=== PATIENT | female | born 1935 | race African-American/Black ===

== ENCOUNTER 2021-10-04 17:24 | Inpatient (IN) | payer OTHER ==
[~2021-10-04] VITALS: Ht 170.2 cm; Wt 82.1 kg
[2021-10-04] MEDS ORDERED: MIDAZOLAM HCL 100 MG in DEXT 5% WATER 80 ML IV ONE (17:45)
[2021-10-04] MEDS ORDERED: PROPOFOL 10MG/ML 100ML 100 ML IV ONE (17:45)
[2021-10-04] MEDS ORDERED: MIDAZOLAM 100MG/100ML PREMIX IV PRN (18:15)
[2021-10-04 18:26] LABS: BASOPHILS % 0.4 % (0.0-2.0); HEMATOCRIT. 45.8 % (36.0-48.0); HEMOGLOBIN. 14.4 g/dL (12.0-16.0); MEAN CORPUSCULAR VOLUME 92.3 fL (81.0-99.0); MEAN PLATELET VOLUME 8.7 fl (7.4-10.4); NEUTROPHILS % 73.6 % (40.0-76.0); PLATELET 284 x1000/uL (130-400); RED BLOOD CELL COUNT 4.96 mill/uL (4.2-5.4); RED CELL DISTRIBUTION WIDTH 14.5 % (11.6-14.6)
[2021-10-04 18:31] LABS: CHLORIDE 113 mEq/L (98-107)
[2021-10-04 18:37] LABS: CLARITY URINE CLOUDY (CLEAR); COLOR URINE YELLOW (YELLOW); KETONES URINE NEGATIVE (NEGATIVE); LEUKOCYTE ESTERASE URINE TRACE (NEGATIVE); NITRITE URINE POSITIVE (NEGATIVE); OCCULT BLOOD URINE 2+ (NEGATIVE); PROTEIN URINE 3+ (NEGATIVE); SPECIFIC GRAVITY URINE 1.022 (1.005-1.030)
[2021-10-04 19:01] LABS: BG CARBOXYHEMOGLOBIN 0.8 % (0.5-1.5); BG DEOXYHEMOGLOBIN 1.9 % (0.0-5.0); BG FRACTION INSPIRED OXYGEN 100; BG HCO3 ACT 22.2 mmol/L (22.0-26.0); BG METHEMOGLOBIN 0.1 % (0.0-1.5); BG OXYGEN SATURATION 98.1 % (92.0-98.5); BG OXYHEMOGLOBIN 97.2 % (94.0-97.0); BG PCO2 60.1 mmHg (35.0-45.0); BG PH 7.185 (7.350-7.450); BG PO2 139.2 mmHg (75.0-100.0); BG SAMPLE SITE RIGHT RADIAL; BG TOTAL HEMOGLOBIN 14.8 g/dL (12.0-18.0); BG VENT MODE VENT - AC
[2021-10-04] MEDS ORDERED: VANCOMYCIN 1G PREMIX 200 ML IV ONE (19:30)
[2021-10-04] MEDS ORDERED: CEFTRIAXONE 1 G PREMIX 50 ML IV ONE (19:30)
[2021-10-04] MEDS ORDERED: CEFTRIAXONE 1 G PREMIX 50 ML IV NR (21:15)
[2021-10-04 22:00] VITALS: BP 98/61
[2021-10-04 22:30] VITALS: BP 96/54
[2021-10-04] MEDS ORDERED: ACETAMINOPHEN 650MG SUPP PR PRN ×2 (22:45)
[2021-10-04] MEDS ORDERED: BLOOD SUGAR DIAGNOSTIC STRIP TEST SCH (22:45)
[2021-10-04] MEDS ORDERED: CEFTRIAXONE 1 G PREMIX 50 ML IV SCH ×2 (22:45)
[2021-10-04] MEDS ORDERED: IPRATROPIUM/ALBUTEROL 0.5-3(2.5)MG/3ML NEB NEB PRN (22:45)
[2021-10-04] MEDS ORDERED: DIPHENHYDRAMINE 50MG/ML VIAL IV PRN (22:45)
[2021-10-04] MEDS ORDERED: PHENYLEPHRINE 100 MG in DEXT 5% WATER 240 ML IV PRN (22:45)
[2021-10-04] MEDS ORDERED: DEXTROSE 50% WATER 50ML SYRINGE IV PRN ×2 (22:45→23:00)
[2021-10-04] MEDS ORDERED: ONDANSETRON HCL 4MG/2ML INJ IV PRN (22:45)
[2021-10-04 23:00] VITALS: BP 57/54
[2021-10-04] MEDS ORDERED: INSULIN LISPRO 100 UNITS/ML SUBCUT SCH (23:00)
[2021-10-04 23:30] VITALS: BP 81/41
[2021-10-04] MEDS ORDERED: KCL 20MEQ/100ML PREMIX 200 ML IV SCH (23:30)
[2021-10-05] VITALS (67 sets, daily range): BP systolic 60–152; BP diastolic 43–85
[2021-10-05] MEDS: SODIUM CHLORIDE 0.9% 1,000 ML IV SCH ×2 (00:20→18:55)
[2021-10-05] MEDS: AZITHROMYCIN 500 MG in DEXT 5% WATER 250 ML IV SCH ×2 (00:20→23:52)
[2021-10-05] MEDS: BLOOD SUGAR DIAGNOSTIC STRIP TEST SCH ×4 (00:20→18:56)
[2021-10-05] MEDS: PROPOFOL 10MG/ML 100ML 100 ML IV PRN ×4 (00:24→20:30)
[2021-10-05] MEDS: NOREPINEPHRINE 8 MG in DEXT 5% WATER 242 ML IV PRN ×2 (00:25→20:28)
[2021-10-05] MEDS ORDERED: VANCOMYCIN 1.5GM PMX (XELLIA) 300 ML IV NR (00:30)
[2021-10-05 00:34] LABS: BG BASE EXCESS -5.7 mmol/L (-2.0-2.0); BG CARBOXYHEMOGLOBIN 0.4 % (0.5-1.5); BG DEOXYHEMOGLOBIN 2.6 % (0.0-5.0); BG FRACTION INSPIRED OXYGEN 75; BG METHEMOGLOBIN 0.3 % (0.0-1.5); BG OXYGEN SATURATION 97.4 % (92.0-98.5); BG OXYHEMOGLOBIN 96.7 % (94.0-97.0); BG PCO2 30.2 mmHg (35.0-45.0); BG PH 7.392 (7.350-7.450); BG SAMPLE SITE ALINE; BG TOTAL HEMOGLOBIN 13.6 g/dL (12.0-18.0); BG VENT MODE VENT - AC
[2021-10-05] MEDS: KCL 20MEQ/100ML PREMIX 200 ML IV SCH ×2 (00:51→04:33)
[2021-10-05] MEDS ORDERED: VANCOMYCIN 1500MG in DEXTROSE 5% WATER 250ML IV NR (01:00)
[2021-10-05 06:17] LABS: BASOPHILS % 0.3 % (0.0-2.0); EOSINOPHILS % 0.1 % (0.0-5.0); HEMATOCRIT. 42.9 % (36.0-48.0); LYMPHOCYTES % 7.6 % (20.0-50.0); MEAN CORPUSCULAR HEMOGLOBIN 28.9 pg (28.0-32.0); MEAN CORPUSCULAR VOLUME 88.5 fL (81.0-99.0); MEAN PLATELET VOLUME 8.8 fl (7.4-10.4); MONOCYTES % 8.3 % (2.0-8.0); NEUTROPHILS % 83.7 % (40.0-76.0); PLATELET 228 x1000/uL (130-400); RED BLOOD CELL COUNT 4.85 mill/uL (4.2-5.4)
[2021-10-05] MEDS: INSULIN LISPRO 100 UNITS/ML SUBCUT SCH ×3 (06:46→18:00)
[2021-10-05] MEDS ORDERED: INSULIN LISPRO 100 UNITS/ML SUBCUT SCH (08:20)
[2021-10-05] MEDS ORDERED: ENOXAPARIN 40MG/0.4ML SYR SUBCUT SCH (09:00)
[2021-10-05 09:12] LABS: BG BASE EXCESS -6.1 mmol/L (-2.0-2.0); BG CARBOXYHEMOGLOBIN 0.3 % (0.5-1.5); BG DEOXYHEMOGLOBIN 2.9 % (0.0-5.0); BG FRACTION INSPIRED OXYGEN 75; BG HCO3 ACT 17.5 mmol/L (22.0-26.0); BG METHEMOGLOBIN 0.1 % (0.0-1.5); BG OXYGEN SATURATION 97.1 % (92.0-98.5); BG OXYHEMOGLOBIN 96.7 % (94.0-97.0); BG PCO2 29.5 mmHg (35.0-45.0); BG PH 7.391 (7.350-7.450); BG PO2 99.3 mmHg (75.0-100.0); BG SAMPLE SITE RIGHT RADIAL; BG TOTAL HEMOGLOBIN 13.8 g/dL (12.0-18.0); BG VENT MODE VENT - AC
[2021-10-05] MEDS: PANTOPRAZOLE SODIUM 40 MG/VIAL IV SCH (09:44)
[2021-10-05] MEDS: FUROSEMIDE 40MG/4ML VIAL IVP SCH (12:00)
[2021-10-05] MEDS ORDERED: VANCOMYCIN 1GM PMX (XELLIA) 200 ML IV SCH (21:00)
[2021-10-05] MEDS: CEFTRIAXONE 1,000 MG in DEXTROSE 5% WATER 50 ML IV SCH (23:51)
[2021-10-06] VITALS (96 sets, daily range): BP systolic 86–146; BP diastolic 40–76
[2021-10-06] MEDS: BLOOD SUGAR DIAGNOSTIC STRIP TEST SCH ×4 (00:11→18:40)
[2021-10-06] MEDS: PROPOFOL 10MG/ML 100ML 100 ML IV PRN ×4 (03:15→23:13)
[2021-10-06 05:52] LABS: HEMATOCRIT. 36.6 % (36.0-48.0); HEMOGLOBIN. 12.1 g/dL (12.0-16.0); MEAN CORPUSCULAR HEMOGLOBIN 28.9 pg (28.0-32.0); MEAN CORPUSCULAR VOLUME 87.5 fL (81.0-99.0); PLATELET 228 x1000/uL (130-400); RED BLOOD CELL COUNT 4.18 mill/uL (4.2-5.4)
[2021-10-06 06:00] LABS: CHLORIDE 113 mEq/L (98-107)
[2021-10-06] MEDS: INSULIN LISPRO 100 UNITS/ML SUBCUT SCH ×4 (06:27→18:00)
[2021-10-06 07:14] LABS: PLATELET ESTIMATE NORMAL
[2021-10-06 08:55] LABS: BG BASE EXCESS -1.6 mmol/L (-2.0-2.0); BG CARBOXYHEMOGLOBIN 0.2 % (0.5-1.5); BG FRACTION INSPIRED OXYGEN 75; BG HCO3 ACT 22.4 mmol/L (22.0-26.0); BG METHEMOGLOBIN 0.2 % (0.0-1.5); BG OXYHEMOGLOBIN 98.6 % (94.0-97.0); BG PCO2 35.8 mmHg (35.0-45.0); BG PH 7.415 (7.350-7.450); BG PO2 219.5 mmHg (75.0-100.0); BG SAMPLE SITE RIGHT RADIAL; BG VENT MODE VENT - AC
[2021-10-06] MEDS: VANCOMYCIN 1GM PMX (XELLIA) 200 ML IV SCH (10:17)
[2021-10-06] MEDS: ENOXAPARIN 30MG/0.3ML SYR SUBCUT SCH (10:20)
[2021-10-06] MEDS: NOREPINEPHRINE 8 MG in DEXT 5% WATER 242 ML IV PRN (10:20)
[2021-10-06] MEDS: FUROSEMIDE 40MG/4ML VIAL IVP SCH ×2 (10:20→17:00)
[2021-10-06] MEDS: PANTOPRAZOLE SODIUM 40 MG/VIAL IV SCH (10:20)
[2021-10-06] MEDS: SODIUM CHLORIDE 0.9% 1,000 ML IV SCH (15:22)
[2021-10-06] MEDS: AZITHROMYCIN 500 MG in DEXT 5% WATER 250 ML IV SCH (23:09)
[2021-10-06] MEDS: CEFTRIAXONE 1,000 MG in DEXTROSE 5% WATER 50 ML IV SCH (23:09)
[2021-10-07] VITALS (81 sets, daily range): BP systolic 87–149; BP diastolic 44–84
[2021-10-07] MEDS: BLOOD SUGAR DIAGNOSTIC STRIP TEST SCH ×4 (00:25→17:52)
[2021-10-07] MEDS: NOREPINEPHRINE 8 MG in DEXT 5% WATER 242 ML IV PRN ×2 (01:26→18:25)
[2021-10-07] MEDS: PROPOFOL 10MG/ML 100ML 100 ML IV PRN ×3 (04:23→19:17)
[2021-10-07] MEDS: INSULIN LISPRO 100 UNITS/ML SUBCUT SCH ×4 (06:00→17:52)
[2021-10-07 06:35] LABS: HEMATOCRIT. 34.9 % (36.0-48.0); HEMOGLOBIN. 11.4 g/dL (12.0-16.0); MEAN CORPUSCULAR HEMOGLOBIN 28.2 pg (28.0-32.0); MEAN CORPUSCULAR VOLUME 86.4 fL (81.0-99.0); MEAN PLATELET VOLUME 9.4 fl (7.4-10.4); PLATELET 210 x1000/uL (130-400); RED BLOOD CELL COUNT 4.04 mill/uL (4.2-5.4)
[2021-10-07 06:50] LABS: CHLORIDE 114 mEq/L (98-107)
[2021-10-07] MEDS: PANTOPRAZOLE SODIUM 40 MG/VIAL IV SCH (08:20)
[2021-10-07] MEDS: FUROSEMIDE 40MG/4ML VIAL IVP SCH ×2 (08:20→17:57)
[2021-10-07] MEDS: ENOXAPARIN 30MG/0.3ML SYR SUBCUT SCH (08:20)
[2021-10-07 08:59] LABS: PLATELET ESTIMATE NORMAL
[2021-10-07 09:54] LABS: BG CARBOXYHEMOGLOBIN 0.3 % (0.5-1.5); BG FRACTION INSPIRED OXYGEN 75; BG HCO3 ACT 19.8 mmol/L (22.0-26.0); BG METHEMOGLOBIN 0.3 % (0.0-1.5); BG OXYHEMOGLOBIN 98.4 % (94.0-97.0); BG PCO2 28.7 mmHg (35.0-45.0); BG PH 7.457 (7.350-7.450); BG PO2 190.7 mmHg (75.0-100.0); BG SAMPLE SITE LEFT RADIAL; BG VENT MODE VENT - AC
[2021-10-07] MEDS ORDERED: POTASSIUM CHLORIDE INJ 40 MEQ in DEXT 5% WATER 250 ML IV ONE (10:00)
[2021-10-07] MEDS: VANCOMYCIN 1GM PMX (XELLIA) 200 ML IV SCH (10:00)
[2021-10-07] MEDS: KCL 20MEQ/100ML PREMIX 100 ML IV SCH ×2 (11:15→12:50)
[2021-10-07 12:02] LABS: T4 FREE 1.08 ng/dL (0.76-1.46)
[2021-10-07] MEDS: SODIUM CHLORIDE 0.9% 1,000 ML IV SCH (12:52)
[2021-10-07] MEDS ORDERED: FENTANYL CITRATE/PF 2,500 MCG in SODIUM CHLORIDE 0.9% 200 ML IV PRN (13:45)
[2021-10-07] MEDS: FENTANYL 2500MCG/250ML PMX 250 ML IV PRN (16:13)
[2021-10-07] MEDS: IPRATROPIUM/ALBUTEROL 0.5-3(2.5)MG/3ML NEB HHN SCH (20:39)
[2021-10-07] MEDS: CEFTRIAXONE 1,000 MG in DEXTROSE 5% WATER 50 ML IV SCH (23:22)
[2021-10-07] MEDS: AZITHROMYCIN 500 MG in DEXT 5% WATER 250 ML IV SCH (23:53)
[2021-10-08] VITALS (56 sets, daily range): BP systolic 76–142; BP diastolic 33–68
[2021-10-08] MEDS: BLOOD SUGAR DIAGNOSTIC STRIP TEST SCH ×4 (00:16→18:00)
[2021-10-08] MEDS: INSULIN LISPRO 100 UNITS/ML SUBCUT SCH ×4 (00:18→18:00)
[2021-10-08] MEDS: IPRATROPIUM/ALBUTEROL 0.5-3(2.5)MG/3ML NEB HHN SCH ×3 (00:19→17:58)
[2021-10-08 04:54] LABS: HEMATOCRIT. 34.8 % (36.0-48.0); HEMOGLOBIN. 11.2 g/dL (12.0-16.0); MEAN CORPUSCULAR VOLUME 89.7 fL (81.0-99.0); MEAN PLATELET VOLUME 9.1 fl (7.4-10.4); PLATELET 197 x1000/uL (130-400); RED BLOOD CELL COUNT 3.88 mill/uL (4.2-5.4); RED CELL DISTRIBUTION WIDTH 14.4 % (11.6-14.6)
[2021-10-08 06:31] LABS: CHLORIDE 114 mEq/L (98-107)
[2021-10-08 07:58] LABS: PLATELET ESTIMATE NORMAL
[2021-10-08 08:47] LABS: BG BASE EXCESS -0.4 mmol/L (-2.0-2.0); BG CARBOXYHEMOGLOBIN 0.3 % (0.5-1.5); BG DEOXYHEMOGLOBIN 2.4 % (0.0-5.0); BG FRACTION INSPIRED OXYGEN 40; BG HCO3 ACT 24.3 mmol/L (22.0-26.0); BG METHEMOGLOBIN 0.3 % (0.0-1.5); BG OXYGEN SATURATION 97.6 % (92.0-98.5); BG PCO2 39.9 mmHg (35.0-45.0); BG PH 7.402 (7.350-7.450); BG SAMPLE SITE RIGHT RADIAL; BG TOTAL HEMOGLOBIN 11.3 g/dL (12.0-18.0); BG VENT MODE VENT - AC
[2021-10-08] MEDS: PANTOPRAZOLE SODIUM 40 MG/VIAL IV SCH (10:02)
[2021-10-08] MEDS: FUROSEMIDE 40MG/4ML VIAL IVP SCH ×2 (10:02→17:00)
[2021-10-08] MEDS: ENOXAPARIN 30MG/0.3ML SYR SUBCUT SCH (10:02)
[2021-10-08] MEDS: VANCOMYCIN 1GM PMX (XELLIA) 200 ML IV SCH (10:03)
[2021-10-08] MEDS: FENTANYL 2500MCG/250ML PMX 250 ML IV PRN (10:46)
[2021-10-08] MEDS: PROPOFOL 10MG/ML 100ML 100 ML IV PRN (10:55)
[2021-10-08] MEDS: NOREPINEPHRINE 8 MG in DEXT 5% WATER 242 ML IV PRN (15:24)
[2021-10-08] MEDS ORDERED: PROPOFOL 10MG/ML 100ML 100 ML IV PRN (16:00)
[2021-10-09] VITALS (75 sets, daily range): BP systolic 106–167; BP diastolic 42–107
[2021-10-09] MEDS: AZITHROMYCIN 500 MG in DEXT 5% WATER 250 ML IV SCH (00:16)
[2021-10-09] MEDS: CEFTRIAXONE 1,000 MG in DEXTROSE 5% WATER 50 ML IV SCH ×2 (00:16→23:32)
[2021-10-09] MEDS: BLOOD SUGAR DIAGNOSTIC STRIP TEST SCH ×4 (00:17→17:48)
[2021-10-09] MEDS: INSULIN LISPRO 100 UNITS/ML SUBCUT SCH ×4 (00:17→17:48)
[2021-10-09] MEDS: IPRATROPIUM/ALBUTEROL 0.5-3(2.5)MG/3ML NEB HHN SCH ×4 (02:34→20:08)
[2021-10-09 06:03] LABS: HEMATOCRIT. 33.8 % (36.0-48.0); MEAN CORPUSCULAR HEMOGLOBIN 29.1 pg (28.0-32.0); MEAN CORPUSCULAR VOLUME 89.2 fL (81.0-99.0); RED BLOOD CELL COUNT 3.79 mill/uL (4.2-5.4); RED CELL DISTRIBUTION WIDTH 14.4 % (11.6-14.6)
[2021-10-09 06:31] LABS: CHLORIDE 115 mEq/L (98-107)
[2021-10-09 07:00] LABS: PLATELET ESTIMATE NORMAL
[2021-10-09] MEDS: FUROSEMIDE 40MG/4ML VIAL IVP SCH ×2 (08:47→17:02)
[2021-10-09] MEDS: ENOXAPARIN 30MG/0.3ML SYR SUBCUT SCH (08:49)
[2021-10-09] MEDS: VANCOMYCIN 1GM PMX (XELLIA) 200 ML IV SCH (08:49)
[2021-10-09 09:07] LABS: BG BASE EXCESS 2.6 mmol/L (-2.0-2.0); BG CARBOXYHEMOGLOBIN 0.3 % (0.5-1.5); BG DEOXYHEMOGLOBIN 1.5 % (0.0-5.0); BG FRACTION INSPIRED OXYGEN 40; BG HCO3 ACT 25.3 mmol/L (22.0-26.0); BG METHEMOGLOBIN 0.3 % (0.0-1.5); BG OXYGEN SATURATION 98.5 % (92.0-98.5); BG OXYHEMOGLOBIN 97.9 % (94.0-97.0); BG PCO2 33.1 mmHg (35.0-45.0); BG PH 7.502 (7.350-7.450); BG PO2 132.8 mmHg (75.0-100.0); BG SAMPLE SITE RIGHT RADIAL; BG VENT MODE VENT - AC
[2021-10-09] MEDS: PANTOPRAZOLE SODIUM 40 MG/VIAL IV SCH (10:01)
[2021-10-09 13:27] LABS: BG BASE EXCESS 1.3 mmol/L (-2.0-2.0); BG DEOXYHEMOGLOBIN 2.8 % (0.0-5.0); BG FRACTION INSPIRED OXYGEN 30; BG HCO3 ACT 25.6 mmol/L (22.0-26.0); BG METHEMOGLOBIN 0.3 % (0.0-1.5); BG OXYGEN SATURATION 97.2 % (92.0-98.5); BG OXYHEMOGLOBIN 96.9 % (94.0-97.0); BG PCO2 39.4 mmHg (35.0-45.0); BG PH 7.431 (7.350-7.450); BG PO2 97.2 mmHg (75.0-100.0); BG SAMPLE SITE RIGHT RADIAL; BG TOTAL HEMOGLOBIN 11.5 g/dL (12.0-18.0); BG VENT MODE VENT - CPAP
[2021-10-09] MEDS: ACETYLCYSTEINE 100MG/ML 10% VIAL 4ML INH SCH (13:56)
[2021-10-10] VITALS (38 sets, daily range): BP systolic 111–166; BP diastolic 52–86
[2021-10-10] MEDS: IPRATROPIUM/ALBUTEROL 0.5-3(2.5)MG/3ML NEB HHN SCH ×4 (01:55→20:40)
[2021-10-10] MEDS: ACETYLCYSTEINE 100MG/ML 10% VIAL 4ML INH SCH ×3 (01:55→14:12)
[2021-10-10] MEDS: INSULIN LISPRO 100 UNITS/ML SUBCUT SCH ×4 (06:00→17:58)
[2021-10-10] MEDS: BLOOD SUGAR DIAGNOSTIC STRIP TEST SCH ×4 (06:13→17:57)
[2021-10-10] MEDS: PANTOPRAZOLE SODIUM 40 MG/VIAL IV SCH (08:26)
[2021-10-10] MEDS: FUROSEMIDE 40MG/4ML VIAL IVP SCH ×2 (08:26→16:48)
[2021-10-10] MEDS: ENOXAPARIN 30MG/0.3ML SYR SUBCUT SCH (08:26)
[2021-10-10 09:30] LABS: BG BASE EXCESS 6.7 mmol/L (-2.0-2.0); BG CARBOXYHEMOGLOBIN 0.8 % (0.5-1.5); BG DEOXYHEMOGLOBIN 2.9 % (0.0-5.0); BG FRACTION INSPIRED OXYGEN 35; BG HCO3 ACT 30.8 mmol/L (22.0-26.0); BG METHEMOGLOBIN 0.3 % (0.0-1.5); BG OXYGEN SATURATION 97.1 % (92.0-98.5); BG PH 7.483 (7.350-7.450); BG PO2 88.8 mmHg (75.0-100.0); BG SAMPLE SITE RIGHT RADIAL; BG TOTAL HEMOGLOBIN 11.4 g/dL (12.0-18.0); BG VENT MODE COOL AEROSOL
[2021-10-11] VITALS (49 sets, daily range): BP systolic 92–171; BP diastolic 58–105
[2021-10-11] MEDS: ACETYLCYSTEINE 100MG/ML 10% VIAL 4ML INH SCH ×3 (01:19→15:09)
[2021-10-11] MEDS: IPRATROPIUM/ALBUTEROL 0.5-3(2.5)MG/3ML NEB HHN SCH ×4 (01:19→21:01)
[2021-10-11] MEDS ORDERED: DILTIAZEM 125MG/125ML PMX 125 ML IV SCH (03:00)
[2021-10-11] MEDS ORDERED: DILTIAZEM HCL 5MG/ML 5ML VIAL IV SCH (03:00)
[2021-10-11] MEDS ORDERED: PHENYLEPHRINE 100 MG in DEXT 5% WATER 240 ML IV PRN (04:00)
[2021-10-11] MEDS ORDERED: AMIODARONE HCL 150 MG in DEXT 5% WATER 97 ML IV SCH (05:30)
[2021-10-11 05:54] LABS: HEMATOCRIT. 34.9 % (36.0-48.0); HEMOGLOBIN. 11.3 g/dL (12.0-16.0); MEAN CORPUSCULAR HEMOGLOBIN 28.4 pg (28.0-32.0); MEAN CORPUSCULAR VOLUME 87.2 fL (81.0-99.0); PLATELET 346 x1000/uL (130-400); RED CELL DISTRIBUTION WIDTH 14.4 % (11.6-14.6)
[2021-10-11] MEDS: INSULIN LISPRO 100 UNITS/ML SUBCUT SCH ×4 (06:00→17:37)
[2021-10-11] MEDS ORDERED: AMIODARONE HCL 900 MG in DEXT 5% WATER 482 ML IV PRN (06:00)
[2021-10-11 06:03] LABS: CHLORIDE 111 mEq/L (98-107)
[2021-10-11] MEDS: BLOOD SUGAR DIAGNOSTIC STRIP TEST SCH ×4 (06:52→17:36)
[2021-10-11] MEDS: FUROSEMIDE 40MG/4ML VIAL IVP SCH (08:53)
[2021-10-11] MEDS: ENOXAPARIN 30MG/0.3ML SYR SUBCUT SCH (08:53)
[2021-10-11] MEDS: PANTOPRAZOLE SODIUM 40 MG/VIAL IV SCH (08:53)
[2021-10-11] MEDS ORDERED: POTASSIUM CHLORIDE 20MEQ TABLET SR PO NR (09:15)
[2021-10-11] MEDS ORDERED: ENOXAPARIN 60MG/0.6ML SYR SUBCUT NR (10:00)
[2021-10-11] MEDS ORDERED: POTASSIUM CHLORIDE INJ 40 MEQ in DEXT 5% WATER 250 ML IV ONE (10:15)
[2021-10-11] MEDS: KCL 20MEQ/100ML PREMIX 100 ML IV SCH ×2 (11:35→12:56)
[2021-10-11 14:19] LABS: PLATELET ESTIMATE NORMAL
[2021-10-11] MEDS: HYDRALAZINE 20MG/ML VIAL IV PRN (19:10)
[2021-10-11] MEDS: ENOXAPARIN 80MG/0.8ML SYR SUBCUT SCH (21:33)
[2021-10-12] VITALS (61 sets, daily range): BP systolic 139–180; BP diastolic 59–115
[2021-10-12] MEDS: BLOOD SUGAR DIAGNOSTIC STRIP TEST SCH ×3 (00:50→17:42)
[2021-10-12] MEDS: ACETYLCYSTEINE 100MG/ML 10% VIAL 4ML INH SCH ×3 (02:23→14:41)
[2021-10-12] MEDS: IPRATROPIUM/ALBUTEROL 0.5-3(2.5)MG/3ML NEB HHN SCH ×4 (02:24→20:28)
[2021-10-12 06:58] LABS: HEMATOCRIT. 35.4 % (36.0-48.0); HEMOGLOBIN. 11.6 g/dL (12.0-16.0); MEAN CORPUSCULAR HEMOGLOBIN 28.7 pg (28.0-32.0); MEAN CORPUSCULAR VOLUME 87.6 fL (81.0-99.0); MEAN PLATELET VOLUME 9.1 fl (7.4-10.4); PLATELET 382 x1000/uL (130-400); RED BLOOD CELL COUNT 4.04 mill/uL (4.2-5.4); RED CELL DISTRIBUTION WIDTH 14.3 % (11.6-14.6)
[2021-10-12 07:10] LABS: CHLORIDE 113 mEq/L (98-107)
[2021-10-12 07:16] LABS: INR 1.1; PROTHROMBIN TIME 11.6 sec (9.6-11.0)
[2021-10-12] MEDS: PANTOPRAZOLE SODIUM 40 MG/VIAL IV SCH (08:24)
[2021-10-12] MEDS: AMIODARONE HCL 200 MG TABLET PO SCH ×2 (08:25→21:30)
[2021-10-12] MEDS: ENOXAPARIN 80MG/0.8ML SYR SUBCUT SCH ×2 (08:25→21:30)
[2021-10-12] MEDS ORDERED: FUROSEMIDE 40MG/4ML VIAL IVP SCH (09:00)
[2021-10-12] MEDS: INSULIN LISPRO 100 UNITS/ML SUBCUT SCH ×3 (12:02→17:42)
[2021-10-12 13:28] LABS: PLATELET ESTIMATE NORMAL
[2021-10-12] MEDS ORDERED: KCL 20MEQ/100ML PREMIX 100 ML IV NR (21:30)
[2021-10-13] VITALS (80 sets, daily range): BP systolic 69–244; BP diastolic 25–204
[2021-10-13] MEDS: IPRATROPIUM/ALBUTEROL 0.5-3(2.5)MG/3ML NEB HHN SCH ×4 (00:25→21:04)
[2021-10-13] MEDS: ACETYLCYSTEINE 100MG/ML 10% VIAL 4ML INH SCH ×3 (00:26→14:22)
[2021-10-13 04:56] LABS: CHLORIDE 117 mEq/L (98-107)
[2021-10-13] MEDS: INSULIN LISPRO 100 UNITS/ML SUBCUT SCH ×4 (06:10→18:16)
[2021-10-13] MEDS: BLOOD SUGAR DIAGNOSTIC STRIP TEST SCH ×4 (06:11→18:10)
[2021-10-13] MEDS: ENOXAPARIN 80MG/0.8ML SYR SUBCUT SCH ×2 (08:07→22:45)
[2021-10-13] MEDS: PANTOPRAZOLE SODIUM 40 MG/VIAL IV SCH (08:07)
[2021-10-13] MEDS: AMIODARONE HCL 200 MG TABLET PO SCH (08:07)
[2021-10-13] MEDS: DIGOXIN 500MCG/2ML AMP IV SCH ×2 (10:09→12:18)
[2021-10-13] MEDS ORDERED: DEXT 5%/0.2% NACL 1,000 ML IV SCH ×2 (11:00→18:31)
[2021-10-13] MEDS ORDERED: AMIODARONE HCL 900 MG in DEXT 5% WATER 482 ML IV SCH (12:00)
[2021-10-13] MEDS: DEXT 5%/0.2% NACL 1,000 ML IV SCH (22:46)
[2021-10-14] VITALS (78 sets, daily range): BP systolic 90–171; BP diastolic 39–104
[2021-10-14] MEDS: INSULIN LISPRO 100 UNITS/ML SUBCUT SCH ×5 (00:07→23:09)
[2021-10-14] MEDS: BLOOD SUGAR DIAGNOSTIC STRIP TEST SCH ×4 (00:27→17:31)
[2021-10-14] MEDS: IPRATROPIUM/ALBUTEROL 0.5-3(2.5)MG/3ML NEB HHN SCH ×4 (01:55→20:22)
[2021-10-14 05:49] LABS: HEMATOCRIT. 34.4 % (36.0-48.0); HEMOGLOBIN. 10.9 g/dL (12.0-16.0); MEAN CORPUSCULAR HEMOGLOBIN 28.5 pg (28.0-32.0); MEAN CORPUSCULAR VOLUME 89.7 fL (81.0-99.0); MEAN PLATELET VOLUME 9.1 fl (7.4-10.4); PLATELET 403 x1000/uL (130-400); RED BLOOD CELL COUNT 3.83 mill/uL (4.2-5.4); RED CELL DISTRIBUTION WIDTH 14.6 % (11.6-14.6)
[2021-10-14 06:03] LABS: CHLORIDE 118 mEq/L (98-107)
[2021-10-14 06:14] LABS: PHOSPHORUS 2.4 mg/dL (2.5-4.9)
[2021-10-14] MEDS: ACETYLCYSTEINE 100MG/ML 10% VIAL 4ML INH SCH ×2 (07:56→14:04)
[2021-10-14 08:09] LABS: ANTI-NUCLEAR ANTIBODIES DIRECT Positive (Negative)
[2021-10-14] MEDS: ENOXAPARIN 80MG/0.8ML SYR SUBCUT SCH ×2 (08:09→21:00)
[2021-10-14] MEDS: PANTOPRAZOLE SODIUM 40 MG/VIAL IV SCH (08:09)
[2021-10-14] MEDS ORDERED: POTASSIUM CHLORIDE INJ 40 MEQ in DEXT 5% WATER 250 ML IV ONE (08:45)
[2021-10-14] MEDS ORDERED: DIGOXIN 500MCG/2ML AMP IV NR (09:00)
[2021-10-14] MEDS: KCL 20MEQ/100ML PREMIX 100 ML IV SCH ×2 (09:31→11:52)
[2021-10-14 14:44] LABS: PLATELET ESTIMATE INCREASED
[2021-10-14] MEDS: PREDNISONE 20MG TABLET PO SCH (15:18)
[2021-10-14] MEDS: AMIODARONE HCL 200 MG TABLET PO SCH (17:36)
[2021-10-14] MEDS: DEXT 5%/0.2% NACL 1,000 ML IV SCH (17:36)
[2021-10-15] VITALS (32 sets, daily range): BP systolic 109–171; BP diastolic 56–95
[2021-10-15] MEDS: IPRATROPIUM/ALBUTEROL 0.5-3(2.5)MG/3ML NEB HHN SCH ×4 (00:23→21:03)
[2021-10-15] MEDS: HYDRALAZINE 20MG/ML VIAL IV PRN (00:43)
[2021-10-15] MEDS: BLOOD SUGAR DIAGNOSTIC STRIP TEST SCH ×5 (00:43→23:33)
[2021-10-15 05:32] LABS: HEMATOCRIT. 35.4 % (36.0-48.0); HEMOGLOBIN. 11.3 g/dL (12.0-16.0); MEAN CORPUSCULAR HEMOGLOBIN 28.2 pg (28.0-32.0); MEAN CORPUSCULAR VOLUME 88.2 fL (81.0-99.0); MEAN PLATELET VOLUME 9.5 fl (7.4-10.4); PLATELET 402 x1000/uL (130-400); RED BLOOD CELL COUNT 4.01 mill/uL (4.2-5.4); RED CELL DISTRIBUTION WIDTH 14.6 % (11.6-14.6)
[2021-10-15 05:35] LABS: CHLORIDE 117 mEq/L (98-107)
[2021-10-15] MEDS: INSULIN LISPRO 100 UNITS/ML SUBCUT SCH ×4 (05:49→23:36)
[2021-10-15] MEDS: ENOXAPARIN 80MG/0.8ML SYR SUBCUT SCH ×2 (09:28→20:08)
[2021-10-15] MEDS: PREDNISONE 20MG TABLET PO SCH (09:29)
[2021-10-15] MEDS: AMIODARONE HCL 200 MG TABLET PO SCH ×2 (09:29→17:00)
[2021-10-15] MEDS: PANTOPRAZOLE SODIUM 40 MG/VIAL IV SCH (09:29)
[2021-10-15 11:42] LABS: PLATELET ESTIMATE SLIGHTLY INCREASED
[2021-10-16] VITALS (18 sets, daily range): BP systolic 136–169; BP diastolic 53–79
[2021-10-16] MEDS: IPRATROPIUM/ALBUTEROL 0.5-3(2.5)MG/3ML NEB HHN SCH ×4 (02:55→20:47)
[2021-10-16] MEDS: INSULIN LISPRO 100 UNITS/ML SUBCUT SCH ×3 (05:32→18:48)
[2021-10-16] MEDS: BLOOD SUGAR DIAGNOSTIC STRIP TEST SCH ×3 (05:33→18:08)
[2021-10-16 06:31] LABS: HEMATOCRIT. 36.1 % (36.0-48.0); HEMOGLOBIN. 11.5 g/dL (12.0-16.0); MEAN CORPUSCULAR HEMOGLOBIN 28.6 pg (28.0-32.0); MEAN CORPUSCULAR VOLUME 89.9 fL (81.0-99.0); MEAN PLATELET VOLUME 9.8 fl (7.4-10.4); PLATELET 383 x1000/uL (130-400); RED BLOOD CELL COUNT 4.01 mill/uL (4.2-5.4); RED CELL DISTRIBUTION WIDTH 14.9 % (11.6-14.6)
[2021-10-16 06:49] LABS: CHLORIDE 117 mEq/L (98-107)
[2021-10-16 08:08] LABS: PLATELET ESTIMATE NORMAL
[2021-10-16] MEDS: ENOXAPARIN 80MG/0.8ML SYR SUBCUT SCH ×2 (08:21→21:07)
[2021-10-16] MEDS: AMIODARONE HCL 200 MG TABLET PO SCH ×2 (08:22→18:47)
[2021-10-16] MEDS: PANTOPRAZOLE SODIUM 40 MG/VIAL IV SCH (08:22)
[2021-10-16] MEDS: PREDNISONE 20MG TABLET PO SCH (08:22)
[2021-10-16] MEDS: CEFTRIAXONE 1,000 MG in DEXTROSE 5% WATER 50 ML IV SCH (13:15)
[2021-10-16] MEDS ORDERED: CEFTRIAXONE 1 G PREMIX 50 ML IV SCH (13:30)
[2021-10-16] MEDS: HYDRALAZINE 20MG/ML VIAL IV PRN (13:41)
[2021-10-16 14:27] LABS: CLARITY URINE CLOUDY (CLEAR); COLOR URINE YELLOW (YELLOW); KETONES URINE NEGATIVE (NEGATIVE); LEUKOCYTE ESTERASE URINE TRACE (NEGATIVE); NITRITE URINE NEGATIVE (NEGATIVE); OCCULT BLOOD URINE NEGATIVE (NEGATIVE); PROTEIN URINE NEGATIVE (NEGATIVE); SPECIFIC GRAVITY URINE 1.023 (1.005-1.030)
[2021-10-16 20:27] LABS: TOTAL IRON BINDING CAPACITY 195 ug/dL (250-450)
[2021-10-16 20:47] LABS: FERRITIN 451 ng/mL (10-291)
[2021-10-16 20:49] LABS: FOLIC ACID (FOLATE) SERUM > 20.00 ng/mL (>5.38)
[2021-10-16 20:58] LABS: VITAMIN B12 SERUM 303 pg/mL (211-911)
[2021-10-17] VITALS (10 sets, daily range): BP systolic 128–168; BP diastolic 59–93
[2021-10-17] MEDS: INSULIN LISPRO 100 UNITS/ML SUBCUT SCH ×4 (00:05→18:02)
[2021-10-17] MEDS: BLOOD SUGAR DIAGNOSTIC STRIP TEST SCH ×5 (00:06→23:58)
[2021-10-17] MEDS: IPRATROPIUM/ALBUTEROL 0.5-3(2.5)MG/3ML NEB HHN SCH ×4 (02:48→20:03)
[2021-10-17 06:29] LABS: HEMATOCRIT. 35.3 % (36.0-48.0); HEMOGLOBIN. 11.7 g/dL (12.0-16.0); MEAN CORPUSCULAR HEMOGLOBIN 29.1 pg (28.0-32.0); MEAN CORPUSCULAR VOLUME 87.8 fL (81.0-99.0); MEAN PLATELET VOLUME 10.3 fl (7.4-10.4); PLATELET 451 x1000/uL (130-400); RED BLOOD CELL COUNT 4.02 mill/uL (4.2-5.4); RED CELL DISTRIBUTION WIDTH 14.7 % (11.6-14.6)
[2021-10-17 06:55] LABS: CHLORIDE 118 mEq/L (98-107)
[2021-10-17] MEDS: AMIODARONE HCL 200 MG TABLET PO SCH ×2 (09:03→16:32)
[2021-10-17] MEDS: PREDNISONE 20MG TABLET PO SCH (09:04)
[2021-10-17] MEDS: ENOXAPARIN 80MG/0.8ML SYR SUBCUT SCH ×2 (09:04→21:36)
[2021-10-17] MEDS: PANTOPRAZOLE SODIUM 40 MG/VIAL IV SCH (09:04)
[2021-10-17] MEDS: CEFTRIAXONE 1,000 MG in DEXTROSE 5% WATER 50 ML IV SCH (12:34)
[2021-10-17] MEDS: DEXTROSE 5% WATER 1,000 ML IV SCH (16:32)
[2021-10-17 17:39] LABS: HEMATOCRIT 36.8 % (36.0-48.0); HEMOGLOBIN 11.7 g/dL (12.0-16.0); MEAN CORPUSCULAR HEMOGLOBIN 28.7 pg (28.0-32.0); MEAN CORPUSCULAR VOLUME 90.4 fL (81.0-99.0); PLATELET 414 x1000/uL (130-400); RED BLOOD CELL COUNT 4.07 mill/uL (4.2-5.4); RED CELL DISTRIBUTION WIDTH 15.1 % (11.6-14.6)
[2021-10-17] MEDS: HYDRALAZINE 20MG/ML VIAL IV PRN (18:11)
[2021-10-17 18:42] LABS: PLATELET ESTIMATE INCREASED
[2021-10-18] VITALS: BP 115/62
[2021-10-18] MEDS: INSULIN LISPRO 100 UNITS/ML SUBCUT SCH ×5 (00:11→23:47)
[2021-10-18] MEDS: IPRATROPIUM/ALBUTEROL 0.5-3(2.5)MG/3ML NEB HHN SCH ×4 (02:07→20:12)
[2021-10-18] MEDS: HYDRALAZINE 20MG/ML VIAL IV PRN (02:17)
[2021-10-18 04:00] VITALS: BP 138/96
[2021-10-18] MEDS: BLOOD SUGAR DIAGNOSTIC STRIP TEST SCH ×4 (05:31→23:45)
[2021-10-18 05:45] LABS: HEMATOCRIT. 36.3 % (36.0-48.0); HEMOGLOBIN. 11.5 g/dL (12.0-16.0); MEAN CORPUSCULAR VOLUME 88.7 fL (81.0-99.0); MEAN PLATELET VOLUME 10.5 fl (7.4-10.4); PLATELET 448 x1000/uL (130-400); RED BLOOD CELL COUNT 4.09 mill/uL (4.2-5.4); RED CELL DISTRIBUTION WIDTH 15.2 % (11.6-14.6)
[2021-10-18 06:04] LABS: INR 1.1; PROTHROMBIN TIME 11.7 sec (9.6-11.0)
[2021-10-18 06:32] LABS: CHLORIDE 116 mEq/L (98-107)
[2021-10-18 07:35] LABS: PLATELET ESTIMATE INCREASED
[2021-10-18] MEDS: ENOXAPARIN 80MG/0.8ML SYR SUBCUT SCH ×2 (07:43→20:40)
[2021-10-18 08:00] VITALS: BP 144/61
[2021-10-18] MEDS: PANTOPRAZOLE SODIUM 40 MG/VIAL IV SCH (09:46)
[2021-10-18] MEDS: AMIODARONE HCL 200 MG TABLET PO SCH (09:46)
[2021-10-18] MEDS ORDERED: KCL 20MEQ/100ML PREMIX 100 ML IV NR (10:30)
[2021-10-18] MEDS ORDERED: DEXAMETHASONE 4MG/ML 1ML VIAL ONE (10:45)
[2021-10-18] MEDS ORDERED: ONDANSETRON HCL 4MG/2ML INJ ONE (10:45)
[2021-10-18] MEDS ORDERED: PROPOFOL 200MG/20ML VIAL IV ONE (10:45)
[2021-10-18] MEDS ORDERED: LIDOCAINE HCL 1% 10 MG/ML 10ML VIAL ONE (10:47)
[2021-10-18 12:00] VITALS: BP 117/58
[2021-10-18] MEDS: CEFTRIAXONE 1,000 MG in DEXTROSE 5% WATER 50 ML IV SCH (13:21)
[2021-10-18] MEDS: DEXTROSE 5% WATER 1,000 ML IV SCH (13:22)
[2021-10-18 16:00] VITALS: BP 148/68
[2021-10-18] MEDS ORDERED: VANCOMYCIN 1500MG in DEXTROSE 5% WATER 250ML IV NR (17:30)
[2021-10-18] MEDS: THIAMINE HCL 100MG TABLET PO SCH (17:39)
[2021-10-18] MEDS: AMIODARONE HCL 200 MG TABLET GT SCH (17:39)
[2021-10-18] MEDS: CYANOCOBALAMIN 1000MCG/ML VIAL IM SCH (17:39)
[2021-10-18 20:01] VITALS: BP 151/69
[2021-10-19] VITALS (9 sets, daily range): BP systolic 119–159; BP diastolic 53–110
[2021-10-19] MEDS: IPRATROPIUM/ALBUTEROL 0.5-3(2.5)MG/3ML NEB HHN SCH ×4 (01:42→20:23)
[2021-10-19] MEDS: INSULIN LISPRO 100 UNITS/ML SUBCUT SCH ×3 (06:00→17:01)
[2021-10-19 06:05] LABS: HEMATOCRIT. 36.3 % (36.0-48.0); HEMOGLOBIN. 11.6 g/dL (12.0-16.0); MEAN CORPUSCULAR HEMOGLOBIN 28.4 pg (28.0-32.0); MEAN CORPUSCULAR VOLUME 88.8 fL (81.0-99.0); MEAN PLATELET VOLUME 9.8 fl (7.4-10.4); PLATELET 423 x1000/uL (130-400); RED BLOOD CELL COUNT 4.09 mill/uL (4.2-5.4)
[2021-10-19 06:18] LABS: CHLORIDE 117 mEq/L (98-107)
[2021-10-19] MEDS: BLOOD SUGAR DIAGNOSTIC STRIP TEST SCH ×3 (06:27→17:00)
[2021-10-19] MEDS: CYANOCOBALAMIN 1000MCG/ML VIAL IM SCH (10:12)
[2021-10-19] MEDS: PANTOPRAZOLE SODIUM 40 MG/VIAL IV SCH (10:12)
[2021-10-19] MEDS: THIAMINE HCL 100MG TABLET PO SCH (10:12)
[2021-10-19] MEDS: ENOXAPARIN 80MG/0.8ML SYR SUBCUT SCH ×2 (10:13→21:44)
[2021-10-19] MEDS: AMIODARONE HCL 200 MG TABLET GT SCH ×2 (10:13→17:01)
[2021-10-19] MEDS: DEXTROSE 5% WATER 1,000 ML IV SCH (10:15)
[2021-10-19] MEDS ORDERED: SULFAMETHOXAZOLE/TRIMETHOPRIM 400/80MG TAB PO NR (12:00)
[2021-10-19 12:44] LABS: NUCLEATED RED BLOOD CELLS 1 /100 WBC; PLATELET ESTIMATE NORMAL
[2021-10-19] MEDS: CEFTRIAXONE 1,000 MG in DEXTROSE 5% WATER 50 ML IV SCH (13:24)
[2021-10-19] MEDS: CARVEDILOL 3.125 MG TABLET PO SCH (21:44)
[2021-10-20] VITALS (8 sets, daily range): BP systolic 118–159; BP diastolic 58–81
[2021-10-20] MEDS: BLOOD SUGAR DIAGNOSTIC STRIP TEST SCH ×5 (00:34→23:37)
[2021-10-20] MEDS: DEXTROSE 5% WATER 1,000 ML IV SCH ×2 (01:22→23:38)
[2021-10-20] MEDS: IPRATROPIUM/ALBUTEROL 0.5-3(2.5)MG/3ML NEB HHN SCH ×4 (02:31→20:26)
[2021-10-20] MEDS: INSULIN LISPRO 100 UNITS/ML SUBCUT SCH ×5 (05:07→23:38)
[2021-10-20] MEDS: CYANOCOBALAMIN 1000MCG/ML VIAL IM SCH (09:32)
[2021-10-20] MEDS: ENOXAPARIN 80MG/0.8ML SYR SUBCUT SCH (09:33)
[2021-10-20] MEDS: THIAMINE HCL 100MG TABLET PO SCH (09:33)
[2021-10-20] MEDS: PANTOPRAZOLE SODIUM 40 MG/VIAL IV SCH (09:33)
[2021-10-20] MEDS: CARVEDILOL 3.125 MG TABLET PO SCH ×2 (09:33→20:18)
[2021-10-20] MEDS: AMIODARONE HCL 200 MG TABLET GT SCH (09:34)
[2021-10-20] MEDS: CEFTRIAXONE 1,000 MG in DEXTROSE 5% WATER 50 ML IV SCH (13:00)
[2021-10-20] MEDS ORDERED: FUROSEMIDE 40MG TABLET PO SCH (14:00)
[2021-10-20] MEDS: APIXABAN 5 MG TABLET PO SCH (20:18)
[2021-10-21] VITALS (7 sets, daily range): BP systolic 109–142; BP diastolic 50–81
[2021-10-21] MEDS: IPRATROPIUM/ALBUTEROL 0.5-3(2.5)MG/3ML NEB HHN SCH ×4 (01:30→20:13)
[2021-10-21] MEDS: BLOOD SUGAR DIAGNOSTIC STRIP TEST SCH ×3 (05:25→17:58)
[2021-10-21] MEDS: INSULIN LISPRO 100 UNITS/ML SUBCUT SCH ×3 (05:28→17:58)
[2021-10-21 06:07] LABS: HEMATOCRIT 33.9 % (36.0-48.0); HEMOGLOBIN 10.9 g/dL (12.0-16.0); MEAN CORPUSCULAR HEMOGLOBIN 28.2 pg (28.0-32.0); MEAN CORPUSCULAR VOLUME 87.8 fL (81.0-99.0); PLATELET 352 x1000/uL (130-400); RED BLOOD CELL COUNT 3.86 mill/uL (4.2-5.4); RED CELL DISTRIBUTION WIDTH 14.8 % (11.6-14.6)
[2021-10-21 08:04] LABS: CHLORIDE 110 mEq/L (98-107)
[2021-10-21] MEDS: PANTOPRAZOLE SODIUM 40 MG/VIAL IV SCH (08:51)
[2021-10-21] MEDS: THIAMINE HCL 100MG TABLET PO SCH (08:51)
[2021-10-21] MEDS: FUROSEMIDE 40MG TABLET PEG SCH (08:52)
[2021-10-21] MEDS: AMIODARONE HCL 200 MG TABLET GT SCH (08:52)
[2021-10-21] MEDS: APIXABAN 5 MG TABLET PO SCH ×2 (08:52→16:50)
[2021-10-21] MEDS: CARVEDILOL 3.125 MG TABLET PEG SCH ×2 (08:52→20:42)
[2021-10-21] MEDS: CEFTRIAXONE 1,000 MG in DEXTROSE 5% WATER 50 ML IV SCH (14:20)
[2021-10-21] MEDS: HYDRALAZINE 20MG/ML VIAL IV PRN (14:20)
[2021-10-21] MEDS ORDERED: POTASSIUM CHLORIDE 20MEQ/PACKET PO NR (14:45)
[2021-10-21] MEDS: DEXTROSE 5% WATER 1,000 ML IV SCH (20:41)
[2021-10-21] MEDS: ACETAMINOPHEN 650MG/20.3ML UDC PO PRN (21:21)
[2021-10-22] VITALS: BP 144/63
[2021-10-22] MEDS: BLOOD SUGAR DIAGNOSTIC STRIP TEST SCH ×4 (00:14→18:17)
[2021-10-22] MEDS: IPRATROPIUM/ALBUTEROL 0.5-3(2.5)MG/3ML NEB HHN SCH ×4 (01:39→21:15)
[2021-10-22 04:00] VITALS: BP 151/66
[2021-10-22] MEDS: INSULIN LISPRO 100 UNITS/ML SUBCUT SCH ×4 (06:00→18:00)
[2021-10-22 06:14] LABS: HEMATOCRIT. 36.3 % (36.0-48.0); HEMOGLOBIN. 11.8 g/dL (12.0-16.0); MEAN CORPUSCULAR HEMOGLOBIN 28.2 pg (28.0-32.0); MEAN CORPUSCULAR VOLUME 87.3 fL (81.0-99.0); MEAN PLATELET VOLUME 10.1 fl (7.4-10.4); PLATELET 344 x1000/uL (130-400); RED BLOOD CELL COUNT 4.17 mill/uL (4.2-5.4); RED CELL DISTRIBUTION WIDTH 14.9 % (11.6-14.6)
[2021-10-22 08:00] VITALS: BP 166/74
[2021-10-22] MEDS: APIXABAN 5 MG TABLET PO SCH (08:39)
[2021-10-22] MEDS: AMIODARONE HCL 200 MG TABLET GT SCH (08:40)
[2021-10-22] MEDS: THIAMINE HCL 100MG TABLET PO SCH (08:40)
[2021-10-22] MEDS: FUROSEMIDE 40MG TABLET PEG SCH (08:40)
[2021-10-22] MEDS: CARVEDILOL 3.125 MG TABLET PEG SCH ×2 (08:40→21:13)
[2021-10-22] MEDS: PANTOPRAZOLE SODIUM 40 MG/VIAL IV SCH (08:41)
[2021-10-22] MEDS ORDERED: SODIUM CHLORIDE 0.9% 500 ML IV ONE (11:00)
[2021-10-22 12:00] VITALS: BP 132/48
[2021-10-22 13:22] LABS: PLATELET ESTIMATE NORMAL
[2021-10-22 16:00] VITALS: BP 141/62
[2021-10-22 20:00] VITALS: BP 120/58
[2021-10-22 23:06] LABS: HEMATOCRIT. 36.1 % (36.0-48.0); HEMOGLOBIN. 11.8 g/dL (12.0-16.0); MEAN CORPUSCULAR HEMOGLOBIN 28.6 pg (28.0-32.0); MEAN CORPUSCULAR VOLUME 87.9 fL (81.0-99.0); MEAN PLATELET VOLUME 9.4 fl (7.4-10.4); PLATELET 331 x1000/uL (130-400); RED BLOOD CELL COUNT 4.11 mill/uL (4.2-5.4); RED CELL DISTRIBUTION WIDTH 14.8 % (11.6-14.6)
[2021-10-22 23:31] LABS: PLATELET ESTIMATE NORMAL
[2021-10-23] VITALS (7 sets, daily range): BP systolic 97–133; BP diastolic 42–56
[2021-10-23] MEDS: BLOOD SUGAR DIAGNOSTIC STRIP TEST SCH ×5 (00:12→23:16)
[2021-10-23] MEDS: METOCLOPRAMIDE HCL 10MG/2ML VIAL IV SCH ×5 (00:30→23:23)
[2021-10-23] MEDS: INSULIN LISPRO 100 UNITS/ML SUBCUT SCH ×5 (06:00→23:16)
[2021-10-23 06:20] LABS: HEMATOCRIT. 33.5 % (36.0-48.0); HEMOGLOBIN. 10.9 g/dL (12.0-16.0); MEAN CORPUSCULAR HEMOGLOBIN 28.4 pg (28.0-32.0); MEAN CORPUSCULAR VOLUME 87.2 fL (81.0-99.0); MEAN PLATELET VOLUME 9.4 fl (7.4-10.4); PLATELET 328 x1000/uL (130-400); RED BLOOD CELL COUNT 3.84 mill/uL (4.2-5.4); RED CELL DISTRIBUTION WIDTH 14.7 % (11.6-14.6)
[2021-10-23] MEDS: IPRATROPIUM/ALBUTEROL 0.5-3(2.5)MG/3ML NEB HHN SCH ×4 (08:05→20:03)
[2021-10-23 08:25] LABS: PLATELET ESTIMATE NORMAL
[2021-10-23] MEDS: PANTOPRAZOLE SODIUM 40 MG/VIAL IV SCH (08:35)
[2021-10-23] MEDS: AMIODARONE HCL 200 MG TABLET GT SCH (08:35)
[2021-10-23] MEDS: CARVEDILOL 3.125 MG TABLET PEG SCH ×2 (08:35→21:19)
[2021-10-23] MEDS: THIAMINE HCL 100MG TABLET PO SCH (08:35)
[2021-10-24] VITALS (7 sets, daily range): BP systolic 98–166; BP diastolic 32–55
[2021-10-24] MEDS: IPRATROPIUM/ALBUTEROL 0.5-3(2.5)MG/3ML NEB HHN SCH ×4 (01:42→18:00)
[2021-10-24] MEDS: BLOOD SUGAR DIAGNOSTIC STRIP TEST SCH ×3 (05:31→16:48)
[2021-10-24] MEDS: INSULIN LISPRO 100 UNITS/ML SUBCUT SCH ×3 (05:31→16:47)
[2021-10-24] MEDS: METOCLOPRAMIDE HCL 10MG/2ML VIAL IV SCH ×3 (05:45→16:53)
[2021-10-24 06:31] LABS: HEMATOCRIT. 30.7 % (36.0-48.0); HEMOGLOBIN. 9.9 g/dL (12.0-16.0); MEAN CORPUSCULAR HEMOGLOBIN 28.1 pg (28.0-32.0); MEAN PLATELET VOLUME 9.6 fl (7.4-10.4); PLATELET 358 x1000/uL (130-400); RED BLOOD CELL COUNT 3.53 mill/uL (4.2-5.4); RED CELL DISTRIBUTION WIDTH 14.6 % (11.6-14.6)
[2021-10-24 06:53] LABS: CHLORIDE 107 mEq/L (98-107)
[2021-10-24] MEDS: AMIODARONE HCL 200 MG TABLET GT SCH (09:29)
[2021-10-24] MEDS: PANTOPRAZOLE SODIUM 40 MG/VIAL IV SCH (09:29)
[2021-10-24] MEDS: CARVEDILOL 3.125 MG TABLET PEG SCH ×2 (09:30→21:46)
[2021-10-24] MEDS: THIAMINE HCL 100MG TABLET PO SCH (09:30)
[2021-10-24] MEDS ORDERED: HYDRALAZINE 10 MG in SODIUM CHLORIDE 0.9% 49.5 ML IV PRN ×4 (11:30)
[2021-10-24 14:31] LABS: PLATELET ESTIMATE NORMAL
[2021-10-24] MEDS: ZINC SULFATE 220 MG ( 50 ) CAPSULE PO SCH (16:52)
[2021-10-24] MEDS: ASCORBIC ACID 500 MG TABLET GT SCH (16:53)
[2021-10-24] MEDS ORDERED: AMLO5TAB88 PO (18:09)
[2021-10-25] VITALS: BP 123/56
[2021-10-25] MEDS: METOCLOPRAMIDE HCL 10MG/2ML VIAL IV SCH ×4 (00:13→18:37)
[2021-10-25] MEDS: BLOOD SUGAR DIAGNOSTIC STRIP TEST SCH ×4 (00:13→17:32)
[2021-10-25 04:00] VITALS: BP 126/52
[2021-10-25] MEDS: INSULIN LISPRO 100 UNITS/ML SUBCUT SCH ×4 (06:00→17:32)
[2021-10-25 08:00] VITALS: BP 136/48
[2021-10-25] MEDS: IPRATROPIUM/ALBUTEROL 0.5-3(2.5)MG/3ML NEB HHN SCH ×4 (08:19→20:45)
[2021-10-25] MEDS: LOSARTAN POTASSIUM 25 MG TABLET PO SCH (09:00)
[2021-10-25] MEDS: THIAMINE HCL 100MG TABLET PO SCH (09:00)
[2021-10-25 09:21] LABS: HEMATOCRIT. 30.4 % (36.0-48.0); HEMOGLOBIN. 9.7 g/dL (12.0-16.0); MEAN CORPUSCULAR HEMOGLOBIN 27.8 pg (28.0-32.0); MEAN CORPUSCULAR VOLUME 87.2 fL (81.0-99.0); MEAN PLATELET VOLUME 8.9 fl (7.4-10.4); PLATELET 367 x1000/uL (130-400); RED BLOOD CELL COUNT 3.49 mill/uL (4.2-5.4); RED CELL DISTRIBUTION WIDTH 14.6 % (11.6-14.6)
[2021-10-25 09:30] LABS: CHLORIDE 109 mEq/L (98-107)
[2021-10-25 10:06] LABS: PLATELET ESTIMATE NORMAL
[2021-10-25] MEDS: ZINC SULFATE 220 MG ( 50 ) CAPSULE PO SCH (10:37)
[2021-10-25] MEDS: ASCORBIC ACID 500 MG TABLET GT SCH (10:37)
[2021-10-25] MEDS: PANTOPRAZOLE SODIUM 40 MG/VIAL IV SCH (10:37)
[2021-10-25] MEDS: CARVEDILOL 3.125 MG TABLET PEG SCH (10:37)
[2021-10-25 12:02] VITALS: BP 140/58
[2021-10-25] MEDS: AMIODARONE HCL 200 MG TABLET GT SCH (13:44)
[2021-10-25 16:00] VITALS: BP 108/42
[2021-10-25] MEDS: APIXABAN 5 MG TABLET PO SCH (18:38)
[2021-10-25 20:00] VITALS: BP 141/52
[2021-10-26] VITALS: BP 144/56
[2021-10-26] MEDS: IPRATROPIUM/ALBUTEROL 0.5-3(2.5)MG/3ML NEB HHN SCH ×4 (00:43→22:00)
[2021-10-26] MEDS: CARVEDILOL 3.125 MG TABLET PEG SCH ×3 (02:13→20:20)
[2021-10-26] MEDS: METOCLOPRAMIDE HCL 10MG/2ML VIAL IV SCH ×4 (02:14→17:01)
[2021-10-26 04:00] VITALS: BP 135/54
[2021-10-26] MEDS: INSULIN LISPRO 100 UNITS/ML SUBCUT SCH ×4 (06:00→17:13)
[2021-10-26] MEDS: BLOOD SUGAR DIAGNOSTIC STRIP TEST SCH ×4 (06:22→17:13)
[2021-10-26 07:06] LABS: HEMATOCRIT. 29.1 % (36.0-48.0); HEMOGLOBIN. 9.7 g/dL (12.0-16.0); MEAN CORPUSCULAR HEMOGLOBIN 28.8 pg (28.0-32.0); MEAN CORPUSCULAR VOLUME 86.2 fL (81.0-99.0); MEAN PLATELET VOLUME 9.2 fl (7.4-10.4); PLATELET 337 x1000/uL (130-400); RED BLOOD CELL COUNT 3.38 mill/uL (4.2-5.4); RED CELL DISTRIBUTION WIDTH 14.2 % (11.6-14.6)
[2021-10-26 07:51] LABS: CHLORIDE 107 mEq/L (98-107)
[2021-10-26 08:00] VITALS: BP 124/53
[2021-10-26] MEDS: AMIODARONE HCL 200 MG TABLET GT SCH (08:20)
[2021-10-26] MEDS: THIAMINE HCL 100MG TABLET PO SCH (08:20)
[2021-10-26] MEDS: LOSARTAN POTASSIUM 25 MG TABLET PO SCH (08:20)
[2021-10-26] MEDS: APIXABAN 5 MG TABLET PO SCH ×2 (08:20→17:01)
[2021-10-26] MEDS: ASCORBIC ACID 500 MG TABLET GT SCH (08:20)
[2021-10-26] MEDS: ZINC SULFATE 220 MG ( 50 ) CAPSULE PO SCH (08:20)
[2021-10-26] MEDS: PANTOPRAZOLE SODIUM 40 MG/VIAL IV SCH (08:20)
[2021-10-26 12:00] VITALS: BP 115/51
[2021-10-26 12:25] LABS: PLATELET ESTIMATE NORMAL
[2021-10-26 16:25] VITALS: BP 104/65
[2021-10-26] MEDS: ACETAMINOPHEN 650MG/20.3ML UDC PO PRN (17:01)
[2021-10-26 19:54] VITALS: BP 120/46
[2021-10-27 00:06] VITALS: BP 129/57
[2021-10-27] MEDS: METOCLOPRAMIDE HCL 10MG/2ML VIAL IV SCH ×4 (01:08→17:25)
[2021-10-27] MEDS: IPRATROPIUM/ALBUTEROL 0.5-3(2.5)MG/3ML NEB HHN SCH ×4 (01:14→20:12)
[2021-10-27 04:00] VITALS: BP 118/45
[2021-10-27] MEDS: BLOOD SUGAR DIAGNOSTIC STRIP TEST SCH ×4 (05:29→17:04)
[2021-10-27] MEDS: INSULIN LISPRO 100 UNITS/ML SUBCUT SCH ×4 (06:00→17:03)
[2021-10-27 08:00] VITALS: BP 11/48
[2021-10-27] MEDS: THIAMINE HCL 100MG TABLET PO SCH (09:45)
[2021-10-27] MEDS: CARVEDILOL 3.125 MG TABLET PEG SCH ×2 (09:45→22:15)
[2021-10-27] MEDS: ZINC SULFATE 220 MG ( 50 ) CAPSULE PO SCH (09:46)
[2021-10-27] MEDS: LOSARTAN POTASSIUM 25 MG TABLET PO SCH (09:46)
[2021-10-27] MEDS: APIXABAN 5 MG TABLET PO SCH ×2 (09:46→17:24)
[2021-10-27] MEDS: AMIODARONE HCL 200 MG TABLET GT SCH (09:46)
[2021-10-27] MEDS: PANTOPRAZOLE SODIUM 40 MG/VIAL IV SCH (09:46)
[2021-10-27] MEDS: ASCORBIC ACID 500 MG TABLET GT SCH (09:46)
[2021-10-27] MEDS: ACETAMINOPHEN 650MG/20.3ML UDC PO PRN ×2 (10:33→17:24)
[2021-10-27 12:00] VITALS: BP 110/45
[2021-10-27 16:00] VITALS: BP 105/44
[2021-10-27 20:00] VITALS: BP 113/46
[2021-10-28] VITALS: BP 126/73
[2021-10-28] MEDS: METOCLOPRAMIDE HCL 10MG/2ML VIAL IV SCH ×4 (00:55→17:58)
[2021-10-28] MEDS: BLOOD SUGAR DIAGNOSTIC STRIP TEST SCH ×4 (00:55→18:00)
[2021-10-28] MEDS: IPRATROPIUM/ALBUTEROL 0.5-3(2.5)MG/3ML NEB HHN SCH ×4 (02:10→14:50)
[2021-10-28 04:00] VITALS: BP 112/47
[2021-10-28] MEDS: INSULIN LISPRO 100 UNITS/ML SUBCUT SCH ×4 (05:49→18:00)
[2021-10-28 08:00] VITALS: BP 133/53
[2021-10-28] MEDS: CARVEDILOL 3.125 MG TABLET PEG SCH ×2 (08:33→21:00)
[2021-10-28] MEDS: APIXABAN 5 MG TABLET PO SCH ×2 (08:33→17:58)
[2021-10-28] MEDS: ZINC SULFATE 220 MG ( 50 ) CAPSULE PO SCH (08:33)
[2021-10-28] MEDS: ASCORBIC ACID 500 MG TABLET GT SCH (08:33)
[2021-10-28] MEDS: PANTOPRAZOLE SODIUM 40 MG/VIAL IV SCH (08:33)
[2021-10-28] MEDS: LOSARTAN POTASSIUM 25 MG TABLET PO SCH (08:33)
[2021-10-28] MEDS: THIAMINE HCL 100MG TABLET PO SCH (08:33)
[2021-10-28] MEDS: AMIODARONE HCL 200 MG TABLET GT SCH (08:34)
[2021-10-28 12:00] VITALS: BP 118/52
[2021-10-28 16:00] VITALS: BP 105/43
[2021-10-28 20:00] VITALS: BP 112/44
[2021-10-29] MEDS: METOCLOPRAMIDE HCL 10MG/2ML VIAL IV SCH ×5 (01:45→23:30)
[2021-10-29] MEDS: IPRATROPIUM/ALBUTEROL 0.5-3(2.5)MG/3ML NEB HHN SCH ×4 (01:54→21:54)
[2021-10-29] MEDS: INSULIN LISPRO 100 UNITS/ML SUBCUT SCH ×4 (06:00→17:50)
[2021-10-29] MEDS: BLOOD SUGAR DIAGNOSTIC STRIP TEST SCH ×4 (06:00→17:50)
[2021-10-29 06:17] LABS: CHLORIDE 108 mEq/L (98-107)
[2021-10-29 06:31] LABS: BASOPHILS % 0.8 % (0.0-2.0); EOSINOPHILS % 3.8 % (0.0-5.0); HEMATOCRIT. 26.7 % (36.0-48.0); HEMOGLOBIN. 8.8 g/dL (12.0-16.0); LYMPHOCYTES % 12.8 % (20.0-50.0); MEAN CORPUSCULAR HEMOGLOBIN 28.6 pg (28.0-32.0); MEAN CORPUSCULAR VOLUME 86.3 fL (81.0-99.0); MONOCYTES % 7.2 % (2.0-8.0); NEUTROPHILS % 75.4 % (40.0-76.0); PLATELET 295 x1000/uL (130-400); RED BLOOD CELL COUNT 3.09 mill/uL (4.2-5.4); RED CELL DISTRIBUTION WIDTH 14.4 % (11.6-14.6)
[2021-10-29 08:00] VITALS: BP 107/48
[2021-10-29] MEDS: ASCORBIC ACID 500 MG TABLET GT SCH (08:37)
[2021-10-29] MEDS: LOSARTAN POTASSIUM 25 MG TABLET PO SCH (08:37)
[2021-10-29] MEDS: ZINC SULFATE 220 MG ( 50 ) CAPSULE PO SCH (08:38)
[2021-10-29] MEDS: AMIODARONE HCL 200 MG TABLET GT SCH (08:38)
[2021-10-29] MEDS: THIAMINE HCL 100MG TABLET PO SCH (08:38)
[2021-10-29] MEDS: PANTOPRAZOLE SODIUM 40 MG/VIAL IV SCH (08:39)
[2021-10-29] MEDS: CARVEDILOL 3.125 MG TABLET PEG SCH ×2 (08:39→20:57)
[2021-10-29] MEDS: APIXABAN 5 MG TABLET PO SCH ×2 (08:43→17:41)
[2021-10-29 12:00] VITALS: BP 108/52
[2021-10-29 16:00] VITALS: BP 126/50
[2021-10-29 20:00] VITALS: BP_SYST 112; BP_SYST 117; BP_DIAS 46; BP_DIAS 50
[2021-10-30] VITALS: BP 117/50
[2021-10-30] MEDS: BLOOD SUGAR DIAGNOSTIC STRIP TEST SCH ×5 (00:12→23:32)
[2021-10-30] MEDS: IPRATROPIUM/ALBUTEROL 0.5-3(2.5)MG/3ML NEB HHN SCH ×4 (02:42→19:45)
[2021-10-30 04:00] VITALS: BP 107/44
[2021-10-30] MEDS: METOCLOPRAMIDE HCL 10MG/2ML VIAL IV SCH ×4 (05:59→23:32)
[2021-10-30] MEDS: INSULIN LISPRO 100 UNITS/ML SUBCUT SCH ×5 (06:00→23:38)
[2021-10-30 06:28] LABS: CHLORIDE 109 mEq/L (98-107)
[2021-10-30 06:59] LABS: BASOPHILS % 0.7 % (0.0-2.0); EOSINOPHILS % 3.8 % (0.0-5.0); HEMATOCRIT. 27.4 % (36.0-48.0); LYMPHOCYTES % 10.1 % (20.0-50.0); MEAN CORPUSCULAR HEMOGLOBIN 28.4 pg (28.0-32.0); MEAN PLATELET VOLUME 8.5 fl (7.4-10.4); MONOCYTES % 5.8 % (2.0-8.0); NEUTROPHILS % 79.6 % (40.0-76.0); PLATELET 300 x1000/uL (130-400); RED BLOOD CELL COUNT 3.15 mill/uL (4.2-5.4); RED CELL DISTRIBUTION WIDTH 14.4 % (11.6-14.6)
[2021-10-30 08:00] VITALS: BP 122/51
[2021-10-30] MEDS: PANTOPRAZOLE SODIUM 40 MG/VIAL IV SCH (08:53)
[2021-10-30] MEDS: APIXABAN 5 MG TABLET PO SCH ×2 (08:54→17:45)
[2021-10-30] MEDS: ZINC SULFATE 220 MG ( 50 ) CAPSULE PO SCH (08:55)
[2021-10-30] MEDS: THIAMINE HCL 100MG TABLET PO SCH (08:55)
[2021-10-30] MEDS: ASCORBIC ACID 500 MG TABLET GT SCH (08:55)
[2021-10-30] MEDS: LOSARTAN POTASSIUM 25 MG TABLET PO SCH (08:55)
[2021-10-30] MEDS: AMIODARONE HCL 200 MG TABLET GT SCH (08:55)
[2021-10-30] MEDS: CARVEDILOL 3.125 MG TABLET PEG SCH ×2 (09:00→21:14)
[2021-10-30 12:00] VITALS: BP 119/38
[2021-10-30 16:00] VITALS: BP 117/46
[2021-10-30 20:00] VITALS: BP 117/74
[2021-10-31] VITALS: BP 134/55
[2021-10-31] MEDS: IPRATROPIUM/ALBUTEROL 0.5-3(2.5)MG/3ML NEB HHN SCH ×2 (01:58→22:00)
[2021-10-31 04:00] VITALS: BP 107/42
[2021-10-31] MEDS: METOCLOPRAMIDE HCL 10MG/2ML VIAL IV SCH ×3 (05:41→18:26)
[2021-10-31] MEDS: INSULIN LISPRO 100 UNITS/ML SUBCUT SCH ×4 (05:48→21:15)
[2021-10-31] MEDS: BLOOD SUGAR DIAGNOSTIC STRIP TEST SCH ×4 (05:48→21:44)
[2021-10-31 08:00] VITALS: BP 118/61
[2021-10-31 08:03] LABS: BASOPHILS % 1.1 % (0.0-2.0); EOSINOPHILS % 4.4 % (0.0-5.0); HEMATOCRIT. 28.9 % (36.0-48.0); HEMOGLOBIN. 9.4 g/dL (12.0-16.0); LYMPHOCYTES % 12.8 % (20.0-50.0); MEAN CORPUSCULAR HEMOGLOBIN 28.3 pg (28.0-32.0); MEAN CORPUSCULAR VOLUME 86.5 fL (81.0-99.0); MEAN PLATELET VOLUME 8.8 fl (7.4-10.4); MONOCYTES % 5.5 % (2.0-8.0); NEUTROPHILS % 76.2 % (40.0-76.0); PLATELET 298 x1000/uL (130-400); RED BLOOD CELL COUNT 3.34 mill/uL (4.2-5.4); RED CELL DISTRIBUTION WIDTH 14.1 % (11.6-14.6)
[2021-10-31 08:08] LABS: CHLORIDE 110 mEq/L (98-107)
[2021-10-31] MEDS: LOSARTAN POTASSIUM 25 MG TABLET PO SCH (09:07)
[2021-10-31] MEDS: AMIODARONE HCL 200 MG TABLET GT SCH (09:07)
[2021-10-31] MEDS: PANTOPRAZOLE SODIUM 40 MG/VIAL IV SCH (09:07)
[2021-10-31] MEDS: ASCORBIC ACID 500 MG TABLET GT SCH (09:08)
[2021-10-31] MEDS: APIXABAN 5 MG TABLET PO SCH ×2 (09:08→18:26)
[2021-10-31] MEDS: THIAMINE HCL 100MG TABLET PO SCH (09:08)
[2021-10-31] MEDS: ZINC SULFATE 220 MG ( 50 ) CAPSULE PO SCH (09:08)
[2021-10-31] MEDS: CARVEDILOL 3.125 MG TABLET PEG SCH ×3 (09:09→22:07)
[2021-10-31 12:00] VITALS: BP 119/54
[2021-10-31 16:00] VITALS: BP 116/44
[2021-10-31 20:00] VITALS: BP 123/67
[2021-11-01] VITALS: BP 128/51
[2021-11-01] MEDS: IPRATROPIUM/ALBUTEROL 0.5-3(2.5)MG/3ML NEB HHN SCH ×4 (02:18→21:16)
[2021-11-01 04:00] VITALS: BP 111/44
[2021-11-01] MEDS: METOCLOPRAMIDE HCL 10MG/2ML VIAL IV SCH ×4 (06:00→17:39)
[2021-11-01] MEDS: INSULIN LISPRO 100 UNITS/ML SUBCUT SCH ×2 (07:20→21:00)
[2021-11-01] MEDS: BLOOD SUGAR DIAGNOSTIC STRIP TEST SCH ×2 (07:21→21:31)
[2021-11-01 08:00] VITALS: BP 126/45
[2021-11-01 08:12] LABS: CHLORIDE 111 mEq/L (98-107)
[2021-11-01] MEDS: APIXABAN 5 MG TABLET PO SCH ×2 (08:46→17:39)
[2021-11-01] MEDS: ZINC SULFATE 220 MG ( 50 ) CAPSULE PO SCH (08:46)
[2021-11-01] MEDS: PANTOPRAZOLE SODIUM 40 MG/VIAL IV SCH (08:46)
[2021-11-01] MEDS: ASCORBIC ACID 500 MG TABLET GT SCH (08:46)
[2021-11-01] MEDS: THIAMINE HCL 100MG TABLET PO SCH (08:46)
[2021-11-01] MEDS: LOSARTAN POTASSIUM 25 MG TABLET PO SCH (08:46)
[2021-11-01] MEDS: AMIODARONE HCL 200 MG TABLET GT SCH (08:46)
[2021-11-01] MEDS: CARVEDILOL 3.125 MG TABLET PEG SCH ×2 (08:47→21:29)
[2021-11-01 12:00] VITALS: BP 126/45
[2021-11-01 12:08] LABS: BASOPHILS % 0.7 % (0.0-2.0); EOSINOPHILS % 2.6 % (0.0-5.0); HEMATOCRIT. 28.5 % (36.0-48.0); HEMOGLOBIN. 9.4 g/dL (12.0-16.0); LYMPHOCYTES % 9.8 % (20.0-50.0); MEAN CORPUSCULAR HEMOGLOBIN 28.8 pg (28.0-32.0); MEAN CORPUSCULAR VOLUME 87.4 fL (81.0-99.0); MEAN PLATELET VOLUME 7.9 fl (7.4-10.4); MONOCYTES % 6.5 % (2.0-8.0); NEUTROPHILS % 80.4 % (40.0-76.0); PLATELET 296 x1000/uL (130-400); RED BLOOD CELL COUNT 3.26 mill/uL (4.2-5.4); RED CELL DISTRIBUTION WIDTH 14.6 % (11.6-14.6)
[2021-11-01 16:00] VITALS: BP 108/43
[2021-11-01 20:00] VITALS: BP 116/41
[2021-11-02] VITALS: BP 130/83
[2021-11-02] MEDS: IPRATROPIUM/ALBUTEROL 0.5-3(2.5)MG/3ML NEB HHN SCH ×4 (02:40→21:06)
[2021-11-02 04:00] VITALS: BP 116/41
[2021-11-02] MEDS: INSULIN LISPRO 100 UNITS/ML SUBCUT SCH ×2 (05:56→21:00)
[2021-11-02] MEDS: BLOOD SUGAR DIAGNOSTIC STRIP TEST SCH ×2 (05:56→21:28)
[2021-11-02] MEDS: METOCLOPRAMIDE HCL 10MG/2ML VIAL IV SCH ×5 (05:56→23:21)
[2021-11-02 08:00] VITALS: BP 113/41
[2021-11-02 08:39] LABS: BASOPHILS % 0.7 % (0.0-2.0); HEMATOCRIT. 27.3 % (36.0-48.0); LYMPHOCYTES % 12.3 % (20.0-50.0); MEAN CORPUSCULAR HEMOGLOBIN 28.4 pg (28.0-32.0); MEAN CORPUSCULAR VOLUME 86.6 fL (81.0-99.0); MEAN PLATELET VOLUME 7.9 fl (7.4-10.4); PLATELET 254 x1000/uL (130-400); RED BLOOD CELL COUNT 3.16 mill/uL (4.2-5.4); RED CELL DISTRIBUTION WIDTH 14.1 % (11.6-14.6)
[2021-11-02 08:47] LABS: CHLORIDE 111 mEq/L (98-107)
[2021-11-02] MEDS: LOSARTAN POTASSIUM 25 MG TABLET PO SCH (09:00)
[2021-11-02] MEDS: CARVEDILOL 3.125 MG TABLET PEG SCH ×2 (09:00→21:29)
[2021-11-02] MEDS: ASCORBIC ACID 500 MG TABLET GT SCH (09:42)
[2021-11-02] MEDS: APIXABAN 5 MG TABLET PO SCH ×2 (09:42→17:31)
[2021-11-02] MEDS: AMIODARONE HCL 200 MG TABLET GT SCH (09:42)
[2021-11-02] MEDS: ZINC SULFATE 220 MG ( 50 ) CAPSULE PO SCH (09:42)
[2021-11-02] MEDS: PANTOPRAZOLE SODIUM 40 MG/VIAL IV SCH (09:43)
[2021-11-02] MEDS: THIAMINE HCL 100MG TABLET PO SCH (09:47)
[2021-11-02 12:00] VITALS: BP 114/53
[2021-11-02 16:00] VITALS: BP 129/67
[2021-11-02 20:00] VITALS: BP 128/50
[2021-11-03] VITALS: BP 137/57
[2021-11-03] MEDS: IPRATROPIUM/ALBUTEROL 0.5-3(2.5)MG/3ML NEB HHN SCH ×4 (01:25→21:56)
[2021-11-03 04:00] VITALS: BP 120/52
[2021-11-03] MEDS: METOCLOPRAMIDE HCL 10MG/2ML VIAL IV SCH ×3 (06:00→17:11)
[2021-11-03] MEDS: INSULIN LISPRO 100 UNITS/ML SUBCUT SCH ×2 (06:03→21:00)
[2021-11-03] MEDS: BLOOD SUGAR DIAGNOSTIC STRIP TEST SCH ×2 (06:03→21:00)
[2021-11-03] MEDS: OMEPRAZOLE 20MG CAPSULE EXTENDED RELEASE PO SCH (07:08)
[2021-11-03 08:00] VITALS: BP 120/57
[2021-11-03] MEDS: AMIODARONE HCL 200 MG TABLET GT SCH (08:57)
[2021-11-03] MEDS: ASCORBIC ACID 500 MG TABLET GT SCH (08:57)
[2021-11-03] MEDS: APIXABAN 5 MG TABLET PO SCH ×2 (08:58→17:11)
[2021-11-03] MEDS: CARVEDILOL 3.125 MG TABLET PEG SCH ×2 (08:59→21:17)
[2021-11-03] MEDS: LOSARTAN POTASSIUM 25 MG TABLET PO SCH (08:59)
[2021-11-03] MEDS: THIAMINE HCL 100MG TABLET PO SCH (09:01)
[2021-11-03] MEDS: ZINC SULFATE 220 MG ( 50 ) CAPSULE PO SCH (09:01)
[2021-11-03 12:00] VITALS: BP 123/58
[2021-11-03 16:00] VITALS: BP 117/50
[2021-11-03 20:00] VITALS: BP 113/49
[2021-11-04] VITALS (7 sets, daily range): BP systolic 117–153; BP diastolic 46–66
[2021-11-04] MEDS: METOCLOPRAMIDE HCL 10MG/2ML VIAL IV SCH ×4 (00:43→17:28)
[2021-11-04] MEDS: IPRATROPIUM/ALBUTEROL 0.5-3(2.5)MG/3ML NEB HHN SCH ×3 (02:59→20:23)
[2021-11-04] MEDS: OMEPRAZOLE 20MG CAPSULE EXTENDED RELEASE PO SCH (05:50)
[2021-11-04] MEDS: INSULIN LISPRO 100 UNITS/ML SUBCUT SCH ×2 (07:20→20:45)
[2021-11-04] MEDS: BLOOD SUGAR DIAGNOSTIC STRIP TEST SCH ×2 (07:26→20:45)
[2021-11-04] MEDS: THIAMINE HCL 100MG TABLET PO SCH (09:17)
[2021-11-04] MEDS: ZINC SULFATE 220 MG ( 50 ) CAPSULE PO SCH (09:17)
[2021-11-04] MEDS: AMIODARONE HCL 200 MG TABLET GT SCH (09:18)
[2021-11-04] MEDS: APIXABAN 5 MG TABLET PO SCH ×2 (09:18→17:28)
[2021-11-04] MEDS: LOSARTAN POTASSIUM 25 MG TABLET PO SCH (09:18)
[2021-11-04] MEDS: CARVEDILOL 3.125 MG TABLET PEG SCH ×2 (09:18→22:01)
[2021-11-04] MEDS: ASCORBIC ACID 500 MG TABLET GT SCH (09:18)
== END 2021-11-04 22:17 | disposition home health service (06) | DRG 870 ==
LOC: ER 17:24 → EDBEDREQ 18:18 → CVICU 19:27 → EDBEDREQ 19:30 → EDBEDREQTM 19:30 → 5EST 10-16 11:18 → 6EST 10-24 10:20
PROVIDERS: ADMIT Internal Medicine; ATTEND Internal Medicine
PROC: 5A1955Z Respiratory Ventilation, Greater than 96 Consecutive Hours (ICD-10-PCS; principal; 2021-10-04)
PROC: 0BH17EZ Insertion of Endotracheal Airway into Trachea, Via Natural or Artificial Opening (ICD-10-PCS; 2021-10-04)
PROC: 02HV33Z Insertion of Infusion Device into Superior Vena Cava, Percutaneous Approach (ICD-10-PCS; 2021-10-05)
PROC: B548ZZA Ultrasonography of Superior Vena Cava, Guidance (ICD-10-PCS; 2021-10-05)
PROC: 4A10X4Z Monitoring of Central Nervous Electrical Activity, External Approach (ICD-10-PCS; 2021-10-17)
PROC: 0DH63UZ Insertion of Feeding Device into Stomach, Percutaneous Approach (ICD-10-PCS; 2021-10-18)
DX: A41.9 Sepsis, unspecified organism (principal); J96.01 Acute respiratory failure with hypoxia; J18.9 Pneumonia, unspecified organism; I50.23 Acute on chronic systolic (congestive) heart failure; E43 Unspecified severe protein-calorie malnutrition; I21.4 Non-ST elevation (NSTEMI) myocardial infarction; J44.0 Chronic obstructive pulmonary disease with (acute) lower respiratory infection; N17.9 Acute kidney failure, unspecified; N39.0 Urinary tract infection, site not specified; I42.9 Cardiomyopathy, unspecified; E87.0 Hyperosmolality and hypernatremia; G93.40 Encephalopathy, unspecified; I13.0 Hypertensive heart and chronic kidney disease with heart failure and stage 1 through stage 4 chronic kidney disease, or unspecified chronic kidney disease; I48.92 Unspecified atrial flutter; I82.621 Acute embolism and thrombosis of deep veins of right upper extremity; J44.1 Chronic obstructive pulmonary disease with (acute) exacerbation; K92.2 Gastrointestinal hemorrhage, unspecified; I44.7 Left bundle-branch block, unspecified; N18.9 Chronic kidney disease, unspecified; D64.9 Anemia, unspecified; E86.0 Dehydration; E87.6 Hypokalemia; E88.09 Other disorders of plasma-protein metabolism, not elsewhere classified; G40.901 Epilepsy, unspecified, not intractable, with status epilepticus; I48.0 Paroxysmal atrial fibrillation; K22.89 Other specified disease of esophagus; Z20.822 Contact with and (suspected) exposure to COVID-19; Z96.641 Presence of right artificial hip joint; I34.0 Nonrheumatic mitral (valve) insufficiency; R53.81 Other malaise; M06.9 Rheumatoid arthritis, unspecified; R13.12 Dysphagia, oropharyngeal phase; R62.7 Adult failure to thrive; Z79.899 Other long term (current) drug therapy; Z90.710 Acquired absence of both cervix and uterus; Z68.28 Body mass index [BMI] 28.0-28.9, adult; F03.90 Unspecified dementia, unspecified severity, without behavioral disturbance, psychotic disturbance, mood disturbance, and anxiety
CPT/HCPCS: 31500; 36415; 36573; 36600; 70551; 71045; 71250; 74018; 74176; 80048; 80053; 80076; 80202; 81003; 82140; 82270; 82375; 82607; 82728; 82746; 82805; 82962; 83036; 83540; 83550; 83605; 83735; 83880; 84100; 84145; 84439; 84443; 84478; 84484; 85025; 85027; 85044; 85651; 86038; 86431; 86592; 87070; 87426; 92610; 93005; 93306; 93970; 93971; 94002; 94003; 94640; 95816; 97110; 97116; 97163; 97167; 97530; 97535; 99291; C1725; C1893; C9113; J0282; J0360; J0456; J0696; J1100; J1160; J1650; J1815; J1940; J2250; J2405; J2704; J2765; J3010; J3370; J3420; J3480; J3490; J7030; J7060; J7070; J7512; J7608; A4315